=== PATIENT | male | born 1945 | race Caucasian/White ===

== ENCOUNTER 2016-11-17 06:25 | Day surgery (SDC) | payer MEDICARE, BC ==
[2016-11-11 14:04] LABS: HEMATOCRIT 42.8 % (40.0-51.0); HEMOGLOBIN 14.2 g/dL (13.6-17.8)
[2016-11-11 14:12] LABS: ASCORBIC ACID (UR NOT ORDER) NEG (NEG); BILIRUBIN, URINE NEGATIVE (NEG); KETONE, URINE NEGATIVE (NEG); LEUKOCYTE ESTERASE(NOT OR NEG (NEG); WBC (NOT ORDERED) (RFLEX) 1 (0-5)
[2016-11-11 14:16] LABS: CALCIUM, SERUM 8.3 MG/DL (8.5-10.4); CHLORIDE, SERUM 106 MMOL/L (96-112); CO2 (CARBON DIOXIDE) 33 MMOL/L (24-34); CREATININE 1.06 MG/DL (0.70-1.30); GFR AFRICAN AMERICAN 83 ML/MIN (>=60); GFR NON AFRICAN AMERICAN 71 ML/MIN (>=60); GLUCOSE, SERUM 79 MG/DL (60-99); POTASSIUM, SERUM 3.9 MMOL/L (3.5-5.3); SODIUM, SERUM 145 MMOL/L (135-148)
[2016-11-11 14:17] LABS: BUN (BLOOD UREA NITROGEN) 10 MG/DL (6-23)
--- NOTE | ~2016-11-17 | OP ---
Record Of Operation [facility] [address] [place]. [address] NAME: SRIKANTH CLOUD : [birth year] STATUS : REG [facility]#: [id number] AGE: 71 ADM/REG DATE : 11/17/16 MR#: [id number] REPORT SERV DATE: 11/17/16 DICTATED BY: RIVERA CABELLO DATE: 11/17/16 REPORT STATUS : Draft TRANSCRIBED BY: [employer]L DATE: 11/17/16 DATE OF PROCEDURE: 11/17/2016 TITLE OF OPERATION: Cystourethroscopy with urethral dilation. PREOPERATIVE DIAGNOSIS: Urethral stricture. POSTOPERATIVE DIAGNOSIS: Urethral stricture. INDICATIONS: Mr. Cloud is a 71-year-old male with a known history of a bulbar urethral stricture. He gets intermittent dilation. He is here for dilation. ANESTHESIA: General. COMPLICATIONS: None. IMPLANTS: None. SPECIMENS: None. NARRATIVE: The patient was brought to the operating room, identified by his wristband. General anesthesia was induced, and Levaquin was given for preoperative antibiotics. He was placed in dorsal lithotomy position, prepped and draped in sterile fashion. A 20-Liberian cystoscope was placed into his urethra. The urethra was notable for a soft stricture of the bulbar urethra. Next, the scope was removed. His urethra was dilated with sounds to a caliber of 28-Liberian. The cystoscope was then placed back into his urethra. The stricture was widely patent. The prostatic urethra was short and nonobstructive. The bladder was normal in appearance. There is no tumors or foreign bodies. The bladder was drained. An 18-Liberian Coude catheter was placed. The patient will be discharged home once his catheter is removed in recovery room. ANITHA/PAULO Rivera Cabello MD / [phone] CC: MD Jose Lopez M.D.
[~2016-11-17 06:25] MED LIST: ASA5GR PO; ASAB PO; ASABAYER PO; ASAEC PO; BRILINTA90 MG PO; CENTRUM PO; CENTRUM TAB1 TAB PO; CO Q-10100 MG PO; DEMA20 PO; EFFIENT10 PO; FLOMAX4 PO; FLOVENT DISK50 MCG INH; FLOVENT220 INH; FLOVENT44 INH; FORADIL INH; IMDUR30 PO; LIPITOR20 PO; LIPITOR40 PO; LOP25 PO; MEVACOR PO; NEXIUM40 PO; NORCO1 TA2 PO; POT GLUCONAT595 M1 OR; POTASSIUM GLUC PO; POTASSIUM OTC; POTASSIUM95 MG PO; PRAVAC PO; PROVENTSOL INH; PROVHFA INH; SYMBICORT 160/41 INH INH; ZEGERID PO; ZEGERID1 CA1 PO; ZOCOR40 PO; [UNRECOGNIZED DRUG - OTHER]
== END 2016-11-17 15:59 | disposition home or self-care (01) ==
LOC: SDC 06:25
PROVIDERS: Urology
PROC: 0T7D8ZZ Dilation of Urethra, Via Natural or Artificial Opening Endoscopic (ICD-10-PCS; principal; 2016-11-17 07:45)
DX: N35.9 Urethral stricture, unspecified (principal); I10 Essential (primary) hypertension; E78.00 Pure hypercholesterolemia, unspecified; I25.10 Atherosclerotic heart disease of native coronary artery without angina pectoris; M19.90 Unspecified osteoarthritis, unspecified site; I25.2 Old myocardial infarction; J45.909 Unspecified asthma, uncomplicated; K21.9 Gastro-esophageal reflux disease without esophagitis; L40.9 Psoriasis, unspecified; Z88.0 Allergy status to penicillin; Z88.8 Allergy status to other drugs, medicaments and biological substances; Z90.49 Acquired absence of other specified parts of digestive tract; Z98.890 Other specified postprocedural states; Z86.010 Personal history of colon polyps; Z87.891 Personal history of nicotine dependence
CPT/HCPCS: 36415; 80048; 81001; 85014; 85018; 86850; 86900; 86901; 93005; A9270-GY; J2250; J2405; J3010

== ENCOUNTER 2016-12-04 05:47 | Day surgery (SDC) | payer MEDICARE, BC ==
--- NOTE | ~2016-12-04 | EGD ---
EGD REPORT [facility] [address] [address] NAME: RADU CLOUD : [birth year] STATUS : REG [facility]#: [id number] AGE: 71 ADM/REG DATE : 12/04/16 MR#: [id number] REPORT SERV DATE: 12/04/16 DICTATED BY: DATE: REPORT STATUS : Draft TRANSCRIBED BY: [employer] DATE: 12/04/16 Endoscopy Center Patient Name: Radu Cloud Date of : 1945 Attending MD: MANUELITO CHRISTIAN MD Procedure Date No Time: 12/04/2016 Procedure: Upper GI endoscopy Indications: Gastro-esophageal reflux disease Referring MD: GUNNAR KUO MD Medicines: See the Anesthesia note for documentation of the administered medications Complications: No immediate complications. Procedure: Pre-Anesthesia Assessment: - ASA Grade Assessment: III - A patient with severe systemic disease. After obtaining informed consent, the endoscope was passed under direct vision. Throughout the procedure, the patient's blood pressure, pulse, and oxygen saturations were monitored continuously. The GIF [id number] was introduced through the mouth, and advanced to the second part of duodenum. The upper GI endoscopy was accomplished without difficulty. The patient tolerated the procedure well. Findings: The examined duodenum was normal. Moderate inflammation was found in the gastric antrum. Biopsies were taken with a cold forceps for histology. The cardia and gastric fundus were normal on retroflexion. A 5 cm hiatus hernia was present. Multiple small Lewis ulcers in hiatal hernia, Biopsies were taken with a cold forceps for histology. Impression: - Normal examined duodenum. - Gastritis. Biopsied. - Hiatus hernia. - Multiple small Lewis ulcers in hiatal hernia Recommendation: - Patient has a contact number available for emergencies. The signs and symptoms of potential delayed complications were discussed with the patient. Return to normal activities tomorrow. Written discharge instructions were provided to the patient. - Regular diet. - Continue present medications. EGD REPORT [address] [place]. [address] NAME: RADU CLOUD : [birth year] STATUS : REG [facility]#: [id number] AGE: 71 ADM/REG DATE : 12/04/16 MR#: [id number] REPORT SERV DATE: 12/04/16 DICTATED BY: DATE: REPORT STATUS : Draft TRANSCRIBED BY: [employer] DATE: 12/04/16 - FOR YOUR BIOPSY RESULTS: Please go to [email or web address] and register to receive your results via the portal. Your biopsy results will be posted there in about 7 to 10 days. IF you do not see result in 10 days, call office. - Increase Nexium to twice per day for 30 days and then every am Procedure Code(s): --- Professional --- 65221, Esophagogastroduodenoscopy, flexible, transoral; with biopsy, single or multiple Diagnosis Code(s): --- Professional --- K29.70, Gastritis, unspecified, without bleeding K44.9, Diaphragmatic hernia without obstruction or gangrene K21.9, Gastro-esophageal reflux disease without esophagitis CPT copyright 2013 [employer]. All rights reserved. The codes documented in this report are preliminary and upon violin repairer review may be revised to meet current compliance requirements. Manuelito Christian MD MANUELITO CHRISTIAN MD 12/04/2016 7:15 AM This report has been signed electronically. Number of Addenda: 0 Note Initiated On: 12/04/2016 7:00 AM Scope Withdrawal Time 0 hours 0 minutes 0 seconds [address] [place] [id number]
--- NOTE | ~2016-12-04 | EGD ---
EGD REPORT [facility] [address] [address] NAME: RADU CLOUD : [birth year] STATUS : REG [facility]#: [id number] AGE: 71 ADM/REG DATE : 12/04/16 MR#: [id number] REPORT SERV DATE: 12/04/16 DICTATED BY: MANUELITO CHRISTIAN DATE: 12/04/16 REPORT STATUS : Draft TRANSCRIBED BY: [facility] DATE: 12/04/16 Endoscopy Center Patient Name: Radu Cloud Date of : 1945 Attending MD: MANUELITO CHRISTIAN MD Procedure Date No Time: 12/04/2016 Procedure: Colonoscopy Indications: Surveillance: History of numerous (> 10) adenomas on last colonoscopy (< 3 yrs) Referring MD: GUNNAR KUO MD Medicines: See the Anesthesia note for documentation of the administered medications Complications: No immediate complications. Procedure: Pre-Anesthesia Assessment: - ASA Grade Assessment: III - A patient with severe systemic disease. After I obtained informed consent, the scope was passed under direct vision. Throughout the procedure, the patient's blood pressure, pulse, and oxygen saturations were monitored continuously. The CF [id number] was introduced through the anus and advanced to the cecum, identified by appendiceal orifice and ileocecal valve. The colonoscopy was performed without difficulty. The patient tolerated the procedure well. The quality of the bowel preparation was adequate. Findings: The perianal and digital rectal examinations were normal. Internal hemorrhoids were found during retroflexion and were small. Impression: - Internal hemorrhoids. Recommendation: - Patient has a contact number available for emergencies. The signs and symptoms of potential delayed complications were discussed with the patient. Return to normal activities tomorrow. Written discharge instructions were provided to the patient. - Regular diet. - Continue present medications. - Repeat colonoscopy in 3 years for surveillance. - Return to my office in 1 year. Procedure Code(s): --- Professional --- 66922, Colonoscopy, flexible, proximal to splenic flexure; diagnostic, with or without collection of EGD REPORT [facility] [address] [place], [place] [address]. [address] NAME: RADU CLOUD : 49 STATUS : REG [facility] [place]#: [id number] AGE: 71 ADM/REG DATE : 12/04/16 MR#: [id number] REPORT SERV DATE: 12/04/16 DICTATED BY: MANUELITO CHRISTIAN DATE: 12/04/16 REPORT STATUS : Draft TRANSCRIBED BY: [employer] DATE: 12/04/16 specimen(s) by brushing or washing, with or without colon decompression (separate procedure) Diagnosis Code(s): --- Professional --- K64.8, Other hemorrhoids Z86.010, Personal history of colonic polyps CPT copyright 2013 [employer]. All rights reserved. The codes documented in this report are preliminary and upon dip stand loader review may be revised to meet current compliance requirements. Manuelito Christian MD MANUELITO CHRISTIAN MD 12/04/2016 7:30 AM This report has been signed electronically. Number of Addenda: 0 Note Initiated On: 12/04/2016 6:58 AM Scope Withdrawal Time 0 hours 8 minutes 1 second [address] [facility] [place] [address]
== END 2016-12-04 23:59 | disposition home or self-care (01) ==
LOC: DMU 05:47
PROVIDERS: Internal Medicine Gastroenterology
PROC: 0DJD8ZZ Inspection of Lower Intestinal Tract, Via Natural or Artificial Opening Endoscopic (ICD-10-PCS; principal; 2016-12-04 07:30)
PROC: 0DB68ZZ Excision of Stomach, Via Natural or Artificial Opening Endoscopic (ICD-10-PCS; 2016-12-04 07:30)
DX: K29.00 Acute gastritis without bleeding (principal); K64.8 Other hemorrhoids; K44.9 Diaphragmatic hernia without obstruction or gangrene; K21.9 Gastro-esophageal reflux disease without esophagitis; I10 Essential (primary) hypertension; I25.2 Old myocardial infarction; I25.10 Atherosclerotic heart disease of native coronary artery without angina pectoris; E78.00 Pure hypercholesterolemia, unspecified; G47.33 Obstructive sleep apnea (adult) (pediatric); J45.909 Unspecified asthma, uncomplicated; M19.90 Unspecified osteoarthritis, unspecified site; L40.9 Psoriasis, unspecified; Z86.010 Personal history of colon polyps; Z87.891 Personal history of nicotine dependence; Z90.49 Acquired absence of other specified parts of digestive tract; Z96.651 Presence of right artificial knee joint; Z95.5 Presence of coronary angioplasty implant and graft; Z96.1 Presence of intraocular lens; Z98.41 Cataract extraction status, right eye; Z98.42 Cataract extraction status, left eye; Z88.0 Allergy status to penicillin; Z88.1 Allergy status to other antibiotic agents; Z79.82 Long term (current) use of aspirin; Z79.899 Other long term (current) drug therapy; Z98.890 Other specified postprocedural states
CPT/HCPCS: 88305; 88342